=== PATIENT | male | born 1975 | race Hispanic/Latino ===

== ENCOUNTER 2021-04-18 11:06 | Emergency (ER) | payer OTHER ==
[2021-04-18 11:42] VITALS: BP 131/79
[2021-04-18] MEDS ORDERED: LIDOCAINE (1%) 10 MG/1 ML VIAL 20 ML MDV INFILTRATI ONE (14:09)
--- NOTE | 2021-04-18 15:23 | Emergency Department Report ---
ED General Adult HPI - General Chief complaint: Wound/Laceration Stated complaint: CUT ABOVE(R)EYE Time Seen by Provider: 04/18/21 13:05 Source: patient Mode of arrival: Ambulatory Limitations: No Limitations - History of Present Illness Initial comments: 46-year-old male patient presents with complaints of laceration above right eye today. Patient states he hit himself in the eye with a reyes. He states his tetanus vaccine is up-to-date. He denies any loss of consciousness, headache, vision changes, dizziness, nausea/vomiting, confusion, memory loss, or numbness/tingling/weakness in his limbs. -: Sudden - Related Data Previous Rx's Medication Instructions Recorded Last Taken Type Ibuprofen [Motrin 800 MG tab] 800 mg PO Q8HR PRN #15 tablet 04/18/21 Unknown Rx Mupirocin [Bactroban 2% OINT] 1 applic TP TID 7 Days #1 tube 04/18/21 Unknown Rx cephALEXin [Keflex] 500 mg PO Q12HR 7 Days #14 cap 04/18/21 Unknown Rx Allergies Allergy/AdvReac Type Severity Reaction Status Date / Time No Known Allergies Allergy Verified 04/18/21 11:38 ED Review of Systems ROS: Stated complaint: CUT ABOVE(R)EYE Other details as noted in HPI Eyes: denies: vision change Gastrointestinal: denies: nausea, vomiting Skin: as per HPI. 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 - Surgical History Additional Surgical History: WRIST ANKLE - Social History Smoking Status: Current Every Day Smoker Substance Use Type: None - Medications Home Medications: Home Medications Medication Instructions Recorded Confirmed Last Taken Type Ibuprofen [Motrin 800 MG tab] 800 mg PO Q8HR PRN #15 tablet 04/18/21 Unknown Rx Mupirocin [Bactroban 2% OINT] 1 applic TP TID 7 Days #1 tube 04/18/21 Unknown Rx cephALEXin [Keflex] 500 mg PO Q12HR 7 Days #14 cap 04/18/21 Unknown Rx ED Physical Exam - General Limitations: No Limitations General appearance: alert, in no apparent distress - Head Head exam: Present: normocephalic, other (Approximately 4 cm laceration noted above right eye; no obvious foreign bodies noted; no surrounding bruising or swelling) - Eye Eye exam: Present: normal appearance, PERRL, EOMI. Absent: scleral icterus - Neck Neck exam: Present: normal inspection - Respiratory Respiratory exam: Absent: respiratory distress - Cardiovascular Cardiovascular Exam: Present: regular rate - Neurological Exam Neurological exam: Present: alert, oriented X3, CN II-XII intact, normal gait - Psychiatric Psychiatric exam: Present: normal affect, normal mood - Skin Skin exam: Present: warm, dry, normal color. Absent: rash ED Course Vital Signs 04/18/21 04/18/21 04/18/21 11:34 11:35 11:42 Temperature 97.9 F 97.9 F Pulse Rate 72 71 Respiratory 16 16 Rate Blood Pressure 131/79 [Right] O2 Sat by Pulse 100 99 Oximetry - Laceration /Wound Repair Face Wound Length (cm): 4 Wound's Depth, Shape: linear Wound Explored: clean Irrigated w/ Saline (ccs): 100 Betadine Prep?: Yes Anesthesia: 1% Lidocaine Volume Anesthetic (ccs): 7 Wound Repaired With: sutures Suture Size/Type: 5:0, proline Number of Sutures: 11 (3 simple interrupted, a continuous) Layer Closure?: No Sterile Dressing Applied?: No Progress: Minimal bleeding occurred. Patient tolerated procedure well without any immediate complications ED Medical Decision Making - Medical Decision Making 46-year-old male patient presents with complaints of laceration above right eye today. Patient states he hit himself in the eye with a reyes. He states his tetanus vaccine is up-to-date. He denies any loss of consciousness, headache, vision changes, dizziness, nausea/vomiting, confusion, memory loss, or numbness/tingling/weakness in his limbs. Laceration repaired. Patient tolerated procedure well without any immediate complications. Will place on Keflex and mupirocin for infection prophylaxis. Patient to follow-up here in 12 days for suture removal. He is well-appearing and stable for discharge home. Discussed wound care and strict return precautions in detail with patient who verbalized understanding. Critical care attestation.: If time is entered above; I have spent that time in minutes in the direct care of this critically ill patient, excluding procedure time. ED Disposition Clinical Impression: Facial laceration Disposition: HOME / SELF CARE / HOMELESS Is pt being admited?: No Condition: Stable Instructions: Sutured Wound Care, [id number] Additional Instructions: Return to the emergency department for suture removal in 12 days You may also have your sutures removed with your primary care provider or an urgent care Prescriptions: Mupirocin [Bactroban 2% OINT] 1 applic TP TID 7 Days #1 tube cephALEXin [Keflex] 500 mg PO Q12HR 7 Days #14 cap Ibuprofen [Motrin 800 MG tab] 800 mg PO Q8HR PRN #15 tablet PRN Reason: pain Referrals: PRIMARY CARE,MD [Primary Care Provider] - 3-5 Days Forms: Work/School Release Form(ED)
== END 2021-04-18 16:06 | disposition home or self-care (01) ==
LOC: ED 11:06
DX: S01.81XA Laceration without foreign body of other part of head, initial encounter (principal); I50.9 Heart failure, unspecified; Z52.4 Kidney donor; Z98.890 Other specified postprocedural states; F17.200 Nicotine dependence, unspecified, uncomplicated; W50.0XXA Accidental hit or strike by another person, initial encounter; Y93.89 Activity, other specified; Y92.89 Other specified places as the place of occurrence of the external cause; Y99.8 Other external cause status
CPT/HCPCS: 99282